=== PATIENT | male | born 1965 | race Hispanic/Latino ===

== ENCOUNTER 2019-05-17 18:45 | Observation (INO) | payer OTHER, MEDICARE ==
[~2019-05-17] VITALS: Ht 172.7 cm; Wt 76.7 kg
[~2019-05-17 18:45] MED LIST: AEC81 PO; ATOR40TA69 PO; CARV3.12 PO; CLOP75TA32 PO; DULO60CA64 PO; ENAL5TAB PO; FURO20TA4 PO; HYDR-4068 PO; INSLAN SQ; INSU100C14 SQ; ISOS30TA6 PO; METF-446 PO
[2019-05-17 19:00] LABS: BASOPHILS % (AUTO) 0.9 % (0.0-5.0); EOSINOPHILS % (AUTO) 4.3 % (0.0-8.0); HEMATOCRIT 36.1 % (42-54); MEAN CORPUSCULAR HEMOGLOBIN 30.7 pg (27.0-33.0); MEAN CORPUSCULAR HGB CONC 34.3 g/dL (32.0-36.0); MEAN CORPUSCULAR VOLUME 89.4 fL (79-99); MONOCYTES % (AUTO) 12.4 % (3.0-13.0); NEUTROPHILS % (AUTO) 43.2 % (40.0-77.0); PLATELET COUNT (AUTO) 218 K/uL (130-400); RED BLOOD CELL COUNT(AUTO) 4.04 MIL/uL (4.50-6.20); RED CELL DISTRIBUTION WIDTH 12.1 % (11.0-15.5); WHITE BLOOD COUNT (AUTO) 6.4 K/uL (4.8-10.8)
[2019-05-17 19:08] LABS: CREATININE 0.9 mg/dL (0.5-1.5); POTASSIUM 4.3 mmol/L (3.5-5.1)
[2019-05-17 19:14] LABS: ALBUMIN 3.7 g/dL (3.5-5.0); BILIRUBIN,TOTAL 0.3 mg/dL (0.2-1.0); TOTAL PROTEIN, SERUM 7.5 g/dL (6.0-8.3)
[2019-05-17 19:41] LABS: INR 1.06 (0.85-1.15); PARTIAL THROMBOPLASTIN TIME 27.5 SEC (26.3-35.5); PROTHROMBIN TIME 11.1 SEC (9.6-11.6)
[2019-05-17] MEDS ORDERED: NITROGLYCERIN 1GM/1 INCH PACKET TD ONE (20:16)
[2019-05-17] MEDS: NITROGLYCERIN 1GM/1 INCH PACKET TD SCH (22:15)
[2019-05-17 23:25] VITALS: BP 134/80
--- NOTE | 2019-05-17 23:45 | NUR ---
[facility] INTERROGATION REQUEST PLACED CALL TO [employer], SPOKE WITH HEMALATHA,WILL ARRANGE FOR INTERROGATION IN A.. ,05/18 Addendum: 05/18/19 at 0516 by ESTHER HAWK RN RN Amended: Links added.
[2019-05-18] VITALS (7 sets, daily range): BP systolic 112–127; BP diastolic 66–80
[2019-05-18] MEDS ORDERED: INSU300I SQ (00:30)
[2019-05-18] MEDS ORDERED: ARIP5TAB13 PO (00:30)
[2019-05-18] MEDS ORDERED: NITR0.4T50 SL (00:30)
[2019-05-18] MEDS ORDERED: CARV12.511 PO (00:30)
[2019-05-18] MEDS ORDERED: GABA-531 PO (00:30)
[2019-05-18] MEDS ORDERED: ASPI-555 PO (00:30)
[2019-05-18] MEDS ORDERED: FURO20TA4 PO (00:30)
[2019-05-18] MEDS ORDERED: ISOS60TA4 PO (00:30)
[2019-05-18 02:48] LABS: BASOPHILS % (AUTO) 0.7 % (0.0-5.0); EOSINOPHILS % (AUTO) 4.4 % (0.0-8.0); HEMATOCRIT 38.4 % (42-54); LYMPHOCYTES % (AUTO) 37.2 % (21.0-51.0); MEAN CORPUSCULAR HEMOGLOBIN 29.8 pg (27.0-33.0); MEAN CORPUSCULAR HGB CONC 33.1 g/dL (32.0-36.0); MEAN CORPUSCULAR VOLUME 90.1 fL (79-99); MONOCYTES % (AUTO) 12.2 % (3.0-13.0); NEUTROPHILS % (AUTO) 45.2 % (40.0-77.0); PLATELET COUNT (AUTO) 215 K/uL (130-400); RED BLOOD CELL COUNT(AUTO) 4.26 MIL/uL (4.50-6.20); RED CELL DISTRIBUTION WIDTH 12.3 % (11.0-15.5); WHITE BLOOD COUNT (AUTO) 5.9 K/uL (4.8-10.8)
[2019-05-18 03:05] LABS: ALBUMIN 3.7 g/dL (3.5-5.0); BILIRUBIN,TOTAL 0.5 mg/dL (0.2-1.0); CREATININE 0.9 mg/dL (0.5-1.5); HEMOGLOBIN A1C 8.6 % (4.0-6.0); MAGNESIUM 2.4 mg/dL (1.80-2.40); POTASSIUM 4.7 mmol/L (3.5-5.1); TOTAL PROTEIN, SERUM 7.6 g/dL (6.0-8.3)
[2019-05-18] MEDS: NITROGLYCERIN 1GM/1 INCH PACKET TD SCH ×3 (05:34→21:00)
[2019-05-18] MEDS: ISOSORBIDE MONO 60 MG TAB.SR PO SCH (05:34)
[2019-05-18] MEDS: INSULIN HUMULIN R 100 UNIT/ML 3ML SQ SCH ×4 (07:22→22:24)
[2019-05-18] MEDS ORDERED: FAMOTIDINE 20MG TAB 20 MG TAB PO SCH (09:00)
[2019-05-18] MEDS ORDERED: ASPIRIN 81MG TAB.CHEW PO SCH (09:00)
[2019-05-18] MEDS: ASPIRIN 81 MG EC TAB PO SCH (09:41)
[2019-05-18] MEDS: DULOXETINE HCL 30 MG CAP PO SCH (09:41)
[2019-05-18] MEDS: GABAPENTIN 300 MG CAPSULE PO SCH ×2 (09:42→22:20)
[2019-05-18] MEDS: FUROSEMIDE 20 MG TABLET PO SCH (09:42)
[2019-05-18] MEDS: CARVEDILOL 12.5 MG TABLET PO SCH ×2 (09:42→22:20)
[2019-05-18] MEDS: ENOXAPARIN SODIUM 30 MG/0.3 ML SQ SCH (09:43)
--- NOTE | 2019-05-18 16:53 | NUR ---
DC PLAN MEET WITH PATIENT AND SPOUSE. PER PATIENT, IS INDEPENDENT WITH ADLS, LIVES WITH SPOUSE AND HER 2 ADULT CHILDREN, HAS USE OF CANE, DENIES PROVIDER OR SERVICES AND FEELS SAFE TO RETURN HOME. Addendum: 05/18/19 at 1654 by DERRICK OLIVA RN Amended: Links added.
[2019-05-18] MEDS ORDERED: ARIPIPRAZOLE 5 MG TABLET PO SCH (21:00)
[2019-05-18] MEDS ORDERED: ATORVASTATIN CALCIUM 40 MG TABLET PO SCH (21:00)
--- NOTE | 2019-05-18 21:35 | NUR ---
PAIN MED PT COMPLAINING OF LOWER BACK PAIN 10/09. PT STATES HE HAS CHRONIC LOWER BACK PAIN R/T DISK HERNIATION X 2. ATTENDING PAGED AT THIS TIME FOR PAIN MEDICATION MANAGEMENT. NEW ORDER: CONTINUE HOME MEDICATION OF NORCO 10/325 MG PO TID PRN FOR MODERATE PAIN.
[2019-05-18] MEDS: HYDROCODONE/ACETAMINOPHEN 10/325 MG TAB PO PRN (22:21)
[2019-05-19] VITALS (7 sets, daily range): BP systolic 108–130; BP diastolic 64–90
[2019-05-19] MEDS: ISOSORBIDE MONO 60 MG TAB.SR PO SCH (05:46)
[2019-05-19] MEDS: NITROGLYCERIN 1GM/1 INCH PACKET TD SCH ×2 (05:46→14:15)
[2019-05-19 06:29] LABS: BASOPHILS % (AUTO) 0.9 % (0.0-5.0); HEMATOCRIT 38.9 % (42-54); LYMPHOCYTES % (AUTO) 45.2 % (21.0-51.0); MEAN CORPUSCULAR HEMOGLOBIN 30.6 pg (27.0-33.0); MEAN CORPUSCULAR HGB CONC 34.2 g/dL (32.0-36.0); MEAN CORPUSCULAR VOLUME 89.4 fL (79-99); MONOCYTES % (AUTO) 12.1 % (3.0-13.0); NEUTROPHILS % (AUTO) 37.6 % (40.0-77.0); PLATELET COUNT (AUTO) 214 K/uL (130-400); RED BLOOD CELL COUNT(AUTO) 4.35 MIL/uL (4.50-6.20); RED CELL DISTRIBUTION WIDTH 11.9 % (11.0-15.5); WHITE BLOOD COUNT (AUTO) 5.6 K/uL (4.8-10.8)
[2019-05-19 06:44] LABS: POTASSIUM 4.6 mmol/L (3.5-5.1)
[2019-05-19] MEDS: INSULIN HUMULIN R 100 UNIT/ML 3ML SQ SCH ×3 (06:54→16:30)
[2019-05-19] MEDS ORDERED: RANITIDINE HCL 15 MG/1 ML PO SCH (09:00)
[2019-05-19] MEDS: ASPIRIN 81 MG EC TAB PO SCH (10:14)
[2019-05-19] MEDS: DULOXETINE HCL 30 MG CAP PO SCH (10:15)
[2019-05-19] MEDS: FUROSEMIDE 20 MG TABLET PO SCH (10:15)
[2019-05-19] MEDS: CARVEDILOL 12.5 MG TABLET PO SCH (10:15)
[2019-05-19] MEDS: GABAPENTIN 300 MG CAPSULE PO SCH (10:15)
[2019-05-19] MEDS: ENOXAPARIN SODIUM 30 MG/0.3 ML SQ SCH (10:16)
[2019-05-19] MEDS: HYDROCODONE/ACETAMINOPHEN 10/325 MG TAB PO PRN (12:28)
== END 2019-05-19 17:35 | disposition home or self-care (01) ==
LOC: EDH 18:45 → EDHIP 22:15 → 4DH 23:25
PROVIDERS: ADMIT Internal Medicine; ATTEND Internal Medicine
DX: I25.110 Atherosclerotic heart disease of native coronary artery with unstable angina pectoris (principal); E11.65 Type 2 diabetes mellitus with hyperglycemia; E78.5 Hyperlipidemia, unspecified; I11.0 Hypertensive heart disease with heart failure; I50.22 Chronic systolic (congestive) heart failure; I48.92 Unspecified atrial flutter; I25.5 Ischemic cardiomyopathy; R42 Dizziness and giddiness; F17.210 Nicotine dependence, cigarettes, uncomplicated; Z95.1 Presence of aortocoronary bypass graft; Z95.810 Presence of automatic (implantable) cardiac defibrillator; Z79.4 Long term (current) use of insulin; Z79.82 Long term (current) use of aspirin; Z79.899 Other long term (current) drug therapy; Z88.6 Allergy status to analgesic agent
CPT/HCPCS: 36415 ×3; 71045; 80048; 80053 ×2; 80061; 82550; 82948 ×7; 83036; 83735; 84484 ×3; 85025 ×3; 85610; 85730; 93005 ×2; 93880; 96372 ×2; 99284; G0378 ×3; J1650 ×2; J1815 ×5